=== PATIENT | female | born 2000 | race Caucasian/White ===

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

== ENCOUNTER 2022-07-09 15:08 | Outpatient (CLI) | payer BC, SELFPAY ==
[2022-07-09 16:20] LABS: Alanine Aminotransferase 28 U/L (6-35); Aspartate Amino Transferase 44 U/L (14-36); Cholesterol 179 mg/dL (0-200); HDL Direct 57 mg/dL; Triglycerides 313 mg/dL (<150)
[2022-07-09 16:31] LABS: LDL Cholesterol Direct 86 mg/dL
== END 2022-07-09 15:09 | disposition home or self-care (01) ==
LOC: ANHLAB 15:12
DX: L70.0 Acne vulgaris (principal); K13.0 Diseases of lips; R04.0 Epistaxis
CPT/HCPCS: 36415; 80061; 84450; 84460

== ENCOUNTER 2022-08-06 14:25 | Outpatient (CLI) | payer BC, SELFPAY ==
[2022-08-06 15:12] LABS: Alanine Aminotransferase 35 U/L (6-35); Aspartate Amino Transferase 42 U/L (14-36); Cholesterol 187 mg/dL (0-200); HDL Direct 51 mg/dL; Triglycerides 232 mg/dL (<150)
[2022-08-06 15:23] LABS: LDL Cholesterol Direct 88 mg/dL
== END 2022-08-06 14:26 | disposition home or self-care (01) ==
LOC: ANHLAB 14:28
DX: L70.0 Acne vulgaris (principal); K13.0 Diseases of lips; R04.0 Epistaxis
CPT/HCPCS: 36415; 80061; 84450; 84460